=== PATIENT | male | born 1985 | race Caucasian/White ===

== ENCOUNTER 2021-04-20 09:47 | Day surgery (SDC) | payer BC ==
[~2021-04-20 09:47] MED LIST: Lactated Ringers 1,000 ML IV SCH; Sodium Chloride 0.9% 10 ML SDV IV PRN; Sodium Chloride 0.9% 10 ML Syringe FLUSH PRN; Sodium Chloride 0.9% 2.5 ML Syringe FLUSH PRN
--- NOTE | 2021-04-20 10:14 | PCM.PREANE ---
Preanesthetic Assessment - Procedure Proposed Procedure: EGD, Colonoscopy - Anesthesia/Transfusion/Family Hx Anesthesia History: Prior Anesthesia Without Reaction Family History of Anesthesia Reaction: No Transfusion History: No Prior Transfusion(s) - Review of Systems General: No Symptoms Pulmonary: No Symptoms (Smokes 1/2 PPD) Cardiovascular: No Symptoms Gastrointestinal: No Symptoms (GERD well controlled) Neurological: No Symptoms Other: Reports: None (Daily Cannibis Use) - Physical Assessment NPO Status Date: 04/18/21 NPO Status Time: 19:00 (Solids, >8Hr Liq) Height: 6 ft 1 in Weight: 69.4 kg ASA Class: 2 Mental Status: Alert & Oriented x3 Airway Class: Mallampati = 3 Dentition: Reports: Normal Dentition Thyro-Mental Finger Breadths: 3 Mouth Opening Finger Breadths: 3 ROM/Head Extension: Full Lungs: Clear to Auscultation, Normal Respiratory Effort Cardiovascular: Regular Rate, Regular Rhythm - Allergies Allergies/Adverse Reactions: Allergies Allergy/AdvReac Type Severity Reaction Status Date / Time No Known Allergies Allergy Verified 04/14/21 08:05 - Acknowledgements Anesthesia Type Planned: General Anesthesia Pt an Appropriate Candidate for the Planned Anesthesia: Yes Alternatives and Risks of Anesthesia Discussed w Pt/Guardian: Yes Pt/Guardian Understands and Agrees with Anesthesia Plan: Yes PreAnesthesia Questionnaire - Past Health History Medical/Surgical History: Denies Medical/Surgical History Gastrointestinal History: Reports: GERD Other Gastrointestinal History: c/o abd pain and cramping & alternating diarrhea and constipation Musculoskeletal History: Reports: Fracture Other Musculoskeletal History: hx fx lt collarbone - Infectious Disease History Infectious Disease History: Reports: None - Past Surgical History Head Surgeries/Procedures: Reports: None HEENT Surgical History: Reports: Oral Surgery (Colony teeth Extraction) Male Surgical History: Reports: Vasectomy - SUBSTANCE USE Tobacco Use Status *Q: Current Every Day Tobacco User (Daily) Tobacco Use Within Last Twelve Months: Cigarettes Recreational Drug Type: Reports: Marijuana/Hashish - HOME MEDS Home Medications: Home Meds Omeprazole 1 tab PO ASDIRECTED PRN 04/14/21 [History] - CURRENT (IN HOUSE) MEDS Current Meds: Current Medications Lactated Ringer's (Ringers, Lactated) 1,000 mls @ 125 mls/hr IV ASDIRECTED REYNA Sodium Chloride (Sodium Chloride 0.9% 10 Ml Syringe) 10 ml FLUSH ASDIRECTED PRN PRN Reason: Keep Vein Open Sodium Chloride (Sodium Chloride 0.9% 2.5 Ml Syringe) 2.5 ml FLUSH ASDIRECTED PRN PRN Reason: Keep Vein Open Sodium Chloride (Sodium Chloride 0.9% 10 Ml Syringe) 10 ml FLUSH ASDIRECTED PRN PRN Reason: Keep Vein Open Sodium Chloride (Sodium Chloride 0.9% 2.5 Ml Syringe) 2.5 ml FLUSH ASDIRECTED PRN PRN Reason: Keep Vein Open Sodium Chloride (Sodium Chloride 0.9% 10 Ml Sdv) 10 ml IV ASDIRECTED PRN PRN Reason: IV Use
[2021-04-20] MEDS ORDERED: fentaNYL 100 MCG/2 ML SDV ONE (10:26)
[2021-04-20] MEDS ORDERED: Propofol 200 MG/20 ML SDV ONE ×3 (10:26→13:10)
[2021-04-20] MEDS ORDERED: Lidocaine 2% 5 ML SDV ONE (10:26)
[2021-04-20] MEDS ORDERED: Midazolam 1 MG/ML 2 ML SDV ONE (10:26)
[2021-04-20] MEDS ORDERED: Benzocaine 20% Topical Spray UD ONE (10:29)
--- NOTE | 2021-04-20 13:37 | PCM.POSTAN ---
POST ANESTHESIA ASSESSMENT - MENTAL STATUS Mental Status: Somnolent - VITAL SIGNS Vital Signs: Last Vital Signs Temp 97.7 F 04/20/21 13:24 Pulse 55 L 04/20/21 13:34 Resp 14 04/20/21 13:34 BP 95/44 L 04/20/21 13:34 Pulse Ox 98 04/20/21 13:34 - RESPIRATORY Respiratory Status: Respiratory Rate WNL, Airway Patent, O2 Saturation Stable - CARDIOVASCULAR CV Status: Pulse Rate WNL, Blood Pressure Stable - GASTROINTESTINAL GI Status: No Symptoms - PAIN Free Text/Narrative:: Resting comfortably - POST OP HYDRATION Hydration Status: Adequate & Stable
--- NOTE | 2021-04-20 13:42 | PCM48HPAN ---
Post Anesthesia Note - EVALUATION WITHIN 48HRS OF ANESTHETIC Vital Signs in Normal Range: Yes Patient Participated in Evaluation: Yes Respiratory Function Stable: Yes Airway Patent: Yes Cardiovascular Function Stable: Yes Hydration Status Stable: Yes Pain Control Satisfactory: Yes Nausea and Vomiting Control Satisfactory: Yes Mental Status Recovered: Yes Vital Signs: Last Vital Signs Temp 97.7 F 04/20/21 13:24 Pulse 82 04/20/21 13:40 Resp 15 04/20/21 13:40 BP 95/44 L 04/20/21 13:34 Pulse Ox 96 04/20/21 13:40 - COMMENTS/OBSERVATIONS Free Text/Narrative:: Pt doing well post-op. VSS. No apparent anesthetic complications. Dr. Maverick Soria
--- NOTE | 2021-04-20 15:18 | PCM.OPNOTE ---
- General Post-Op/Procedure Note Date of Surgery/Procedure: 04/20/21 Operative Procedure(s): Diagnostic EGD and colonoscopy Findings: Hyperplastic polyp of stomach, descending colon polyp Pre Op Diagnosis: ABdominal pain, heartburn, change in bowel habits Post-Op Diagnosis: Hyperplastic gastric polyp, descending colon polyp Anesthesia Technique: MAC Primary Surgeon: Chanda Canales Condition: Good Free Text/Narrative:: Intake & Output 04/20/21 04/20/21 04/20/21 06:59 14:59 22:59 Intake Total 650 Balance 650
--- NOTE | 2021-04-21 19:01 | OR ---
SURGEON: HCANDA CANALES MD DATE OF PROCEDURE: 04/20/2021 PREOPERATIVE DIAGNOSES: Change in bowel habits, abdominal pain, heartburn. POSTOPERATIVE DIAGNOSES: 1. Hyperplastic gastric polyp. 2. Descending colon polyp. PROCEDURE PERFORMED: Diagnostic esophagogastroduodenoscopy and colonoscopy. PRIMARY SURGEON: Chanda Canales MD ANESTHESIA: MAC. INSTRUMENTS USED: Olympus endoscope and colonoscope. EXTENT OF EXAM: To the second portion of duodenum, to the cecum. PREPARATION: Good. LIMITATIONS: None. INDICATIONS FOR EXAMINATION: The patient is a 35-year-old male who presents with two years of abdominal pain. He has been recently having more changes in his bowel habits and having heartburn. The decision was made to proceed with diagnostic EGD and colonoscopy. I explained the procedure, expected perioperative course, and the risks. The patient verbalized understanding and wishes to proceed. PROCEDURE IN DETAIL: The patient was brought in to the endoscopy suite and placed in the left lateral decubitus position. A time-out was completed verifying the patient's name, age, date of , allergies, and procedure to be performed. Monitored anesthesia care was induced and a bite block was placed in the patient's mouth. Continuous oxygen was provided via face mask throughout the procedure. After adequate sedation was achieved, a well-lubricated endoscope was placed in the patient's mouth and advanced under direct visualization to the second portion of duodenum. This appeared normal and a photograph was taken. The scope was then fully withdrawn while examining the color, texture, anatomy, and integrity mucosa of the upper GI tract. The remainder of the duodenum appeared normal. The scope was brought into the stomach and a photograph was taken of the pylorus and GE junction. Both appeared anatomically normal. The patient had a hyperplastic- appearing polyp in the proximal half of the stomach. This was removed with a cold biopsy forceps and sent to Pathology labeled as gastric polyp. Random biopsies were taken of the antrum, body, and fundus, and sent for histologic review and H pylori testing. The scope was brought into the distal esophagus and a photograph was taken of a normal-appearing Z-line. The esophageal mucosa appeared pink and healthy with no evidence of inflammation. A biopsy was taken 1 cm above the Z-line and sent to Pathology for histologic review. The scope was removed and this portion of the procedure was terminated. A digital rectal exam was performed. This exam was within normal limits. A well-lubricated colonoscope was inserted into the rectum and advanced under direct visualization to the level of the cecum. The cecum was identified by both visual and anatomic landmarks. A photograph was taken of the cecal cap as well as with the scope retroflexed within the cecum. The scope was then fully withdrawn while examining the color, texture, anatomy, and integrity of mucosa from the cecum to the anal canal. The terminal ileum appeared healthy and pink. There was no evidence of inflammation. The patient did have a small sessile polyp in the proximal descending colon. This was removed in piecemeal fashion using a cold biopsy forceps. Random biopsies were taken of the cecum, ascending colon, transverse colon, descending colon, sigmoid colon, and rectum and sent to Pathology for histologic review. The scope was brought into the rectum and retroflexed to allow visualization of the anal canal opening. This appeared normal and a photograph was taken. The scope was then straightened out and fully withdrawn. The cecum to anus time was 7 minutes. The patient tolerated the procedure well and was transferred to the PACU in stable condition. ENDOSCOPIC DIAGNOSES: 1. Hyperplastic gastric polyp. 2. Descending colon polyp. RECOMMENDATION: Follow up in clinic in two weeks. RJ OJEDA /[id number]
== END 2021-04-20 14:05 | disposition home or self-care (01) ==
LOC: MW.SDS 09:47
PROVIDERS: ATTEND Surgery
DX: D12.4 Benign neoplasm of descending colon (principal); K31.7 Polyp of stomach and duodenum; Z98.890 Other specified postprocedural states; F17.210 Nicotine dependence, cigarettes, uncomplicated; K21.9 Gastro-esophageal reflux disease without esophagitis
CPT/HCPCS: 43239; 45380; A9270; J2250; J2704; J3010; J7120; 00813

== ENCOUNTER 2023-08-01 10:47 | Emergency (ER) | payer BC ==
[2023-08-01] MEDS ORDERED: Lidocaine 1% 5 ML VIAL INJECT ONE (10:49)
[2023-08-01] MEDS ORDERED: Diphtheria,Pertussis(Acell),Tetanus Vaccine 0.5 ML Syringe ONE (11:10)
[2023-08-01] MEDS ORDERED: Lidocaine 1% 5 ML VIAL ONE (11:10)
== END 2023-08-01 11:57 | disposition home or self-care (01) ==
LOC: MW.ED 10:47
DX: S61.211A Laceration without foreign body of left index finger without damage to nail, initial encounter (principal); Z23 Encounter for immunization; K21.9 Gastro-esophageal reflux disease without esophagitis; Z88.0 Allergy status to penicillin; Z79.899 Other long term (current) drug therapy; W26.8XXA Contact with other sharp object(s), not elsewhere classified, initial encounter
CPT/HCPCS: 12001; 90471; 90715; 99282-25; 99283; J3490

== ENCOUNTER 2024-07-04 09:17 | Emergency (ER) | payer BC ==
[2024-07-04] MEDS: traMADol 50 MG Tab PO STA (10:35)
== END 2024-07-04 11:18 | disposition home or self-care (01) ==
LOC: MW.ED 09:17
DX: M25.511 Pain in right shoulder (principal); K21.9 Gastro-esophageal reflux disease without esophagitis; F17.210 Nicotine dependence, cigarettes, uncomplicated; Z88.0 Allergy status to penicillin; Z79.899 Other long term (current) drug therapy; Z75.8 Other problems related to medical facilities and other health care
CPT/HCPCS: 73030; 99283; A9270